=== PATIENT | male | born 1970 | race Caucasian/White ===

== ENCOUNTER 2024-08-24 02:06 | Day surgery (SDC) | payer OTHER, SELFPAY ==
--- NOTE | 2024-06-05 09:17 | SUR.PREOP ---
Patient called to reschedule his procedure since Dr. Perry will be unavailable on Jul 06. Message left on pt's voicemail.
--- NOTE | 2024-06-08 09:02 | SUR.PREOP ---
pt called to reschedule his procedure. Message left on pt's voicemail requesting a return call.
[2024-07-30 11:14] VITALS: BMI 26.0
[2024-08-24 08:43] VITALS: BP 125/72; PULSE 82; RESP 16; TEMP 36; O2SAT 100; BMI 25.8
[2024-08-24] MEDS: LACTATED RINGERS 1,000 ML 150 ML IV CONT (08:52)
--- NOTE | 2024-08-24 09:37 | P.PNAN_ITS ---
Anes - Initial Pre Proc Eval Procedure: Operation Date: 08/24/24 10:00 Proposed Procedures p Screening Colonoscopy - Ludwin Rios MD Date/Time: 08/24/24 09:37 Surgeon: Ludwin Rios MD Pre Op Diagnosis: Neoplasm screening Patient Data Age: 54 Gender: M Height: 1.75 m Weight: 79.4 kg Last Vital Signs Temp 96.8 F L 08/24/24 08:43 Pulse 82 08/24/24 08:43 Resp 16 08/24/24 08:43 BP 125/72 08/24/24 08:43 Pulse Ox 100 08/24/24 08:43 O2 Del Method Room Air 08/24/24 08:43 Allergies Allergy/AdvReac Type Severity Reaction Status Date / Time No Known Allergies Allergy Mild Verified 08/24/24 08:41 Home Medications Medication Instructions Recorded Confirmed Type loratadine 10 mg tablet (Claritin) 10 mg PO DAILY 07/30/24 08/24/24 History omeprazole 20 mg tablet,delayed 20 mg PO DAILY 07/30/24 08/24/24 History release Patient hx anesthesia problems: none Family hx anesthesia problems: none Results Review: All pre-operative results and documents have been reviewed as part of the pre- operative evaluation. [facility] Past Medical History Medical History (Updated 10/20/19 @ 08:29 by Guilherme Carmona MD) Hypothyroid Family History Family History Sibling Family history of gallbladder disease Mother Family history of malignant neoplasm Father Family history of diabetes mellitus in first degree relative Acute myocardial infarction Other Diabetes mellitus Social History Social History Smoking status: Never smoker Alcohol intake: current Living arrangements: with family Gender identity (if verbalized by the patient): Male Spiritual care concerns: No Anes - Eval Final PreProcedure Day of Procedure 08/24/24 09:37 Patient weight: normal Heart: regular rate and rhythm Lungs: clear to auscultation Airway: Mallampati scale class II Neurological: alert and oriented Last oral intake: >/= 8 hours ASA classification: II Emergent: no Anesthetic plan: proceed Anesthesia type and monitoring: general GIVS and standard monitoring Results Review: All pre-operative results and documents have been reviewed as part of the pre- operative evaluation. Informed Consent: The patient's anesthetic plan and its attendant risks and benefits were discussed with the patient/family/POA. Questions were solicited and answers provided to the satisfaction of the patient/family/POA.
--- NOTE | 2024-08-24 09:46 | PM.HPGS ---
History of Present Illness History of Present Illness Consent: Risks, benefits, and alternatives have been discussed and questions answered. Patient agrees to proceed with procedure. Chief complaint: Neoplasm screening Narrative: Freddy Gunn is a 54 year old male here for first screening colonoscopy Review of Systems Review of Systems: All systems reviewed & are unremarkable except as noted in HPI and below PMFSH Past Medical History Medical History (Updated 08/24/24 @ 09:47 by Ludwin Rios MD) Colon cancer screening Hypothyroid Family History Family History Sibling Family history of gallbladder disease Mother Family history of malignant neoplasm Father Family history of diabetes mellitus in first degree relative Acute myocardial infarction Other Diabetes mellitus Social History Social History Smoking status: Never smoker Alcohol intake: current Living arrangements: with family Gender identity (if verbalized by the patient): Male Spiritual care concerns: No Meds Home Medications and Allergies Home Medications Medication Instructions Recorded Confirmed Type loratadine 10 mg tablet (Claritin) 10 mg PO DAILY 07/30/24 08/24/24 History omeprazole 20 mg tablet,delayed 20 mg PO DAILY 07/30/24 08/24/24 History release Allergies Allergy/AdvReac Type Severity Reaction Status Date / Time No Known Allergies Allergy Mild Verified 08/24/24 08:41 Vital Signs Vital Signs - 24 hr 08/24/24 08:43 Temperature 96.8 F L Pulse Rate 82 Respiratory Rate 16 Blood Pressure 125/72 Pulse Oximetry 100 Oxygen Delivery Room Air Exam Const: General: comfortable and no acute distress HENMT: Face/Nose/Sinus: Normal nares present Eyes: General: appearance normal, both eyes and all related structures Neck: Neck: no JVD Resp: Auscultation: clear to auscultation bilaterally Cardio: Rate: regular rate Rhythm: regular rhythm GI: Inspection: non-distended GI Palp: Yes Soft to palpation Skin: General skin exam: normal color Neuro: General: gait normal Speech: normal speech Extrem: General: normal to inspection Psych: Mental Status: mental status grossly normal Assessment and Plan Assessment and plan (1) Colon cancer screening: Code(s): Z12.11 - Encounter for screening for malignant neoplasm of colon Status: Acute Assessment and Plan: colonoscopy
[2024-08-24 10:13] VITALS: BP 96/55; PULSE 49; RESP 20; O2SAT 98
[2024-08-24 10:23] VITALS: BP 100/58; PULSE 50; RESP 22; O2SAT 100
[2024-08-24 10:33] VITALS: BP 101/76; PULSE 50; RESP 21; O2SAT 100
== END 2024-08-24 10:42 | disposition home or self-care (01) ==
PROVIDERS: PCP Physician Assistant; Visit Provider Internal Medicine Gastroenterology
PROC: 0DJD8ZZ Inspection of Lower Intestinal Tract, Via Natural or Artificial Opening Endoscopic (ICD-10-PCS; CPT 45378; principal; 2024-08-24 10:00)
DX: Z12.11 Encounter for screening for malignant neoplasm of colon (principal); D12.0 Benign neoplasm of cecum; K63.5 Polyp of colon; K64.8 Other hemorrhoids; E03.9 Hypothyroidism, unspecified; Z80.9 Family history of malignant neoplasm, unspecified; Z82.49 Family history of ischemic heart disease and other diseases of the circulatory system
CPT/HCPCS: 45385; 88305; J2704; J7120

== ENCOUNTER 2024-12-28 18:15 | Emergency (ER) | payer OTHER, SELFPAY ==
--- OUTSIDE RECORDS SUMMARY | 2024-12-28 18:17 | XMS_ITS | Continuity of Care Document ---
Author Organization [facility] Address [address] [place] [address] Phone Care Team Providers Care Manager Of Data Name Role Phone Sander Fox MD Unavailable Unavailable Allergies, Adverse Reactions, Alerts Substance Reaction Status Criticality No Known Allergies Active No Inform ation Medications Medication Instructions Dosage Effective Dates (start - stop) Status Comments tramadol 50 mg tablet take 1 tablet by oral route every 6 hours as needed 50 MG - Active fluocinonide 0.05 % topical cream apply by topical route to affected area in Physical Therapy during Phonopheresis- dispense 60 gram tube - Active tramadol 50 mg tablet take 1 tablet by oral route every 6 hours as needed 50 MG - No Longer Active Procedures Procedure Date OFFICE/OUTPATIENT VISIT EST OFFICE/OUTPATIENT VISIT EST OFFICE/OUTPATIENT VISIT NEW Advance Directives Directive Yes / No Effective Date File Name No Information Encounters Encounter Description Practice Location Reason(s) For Visit Diagnoses Date Provider Providers Copied on Encounter [facility], [address], [address], [place] tel:[phone] [facility] No Information 9 Dominique Boucher. [address] [place], [place], [id number] . tel: [phone] OFFICE/OUTPA TIENT VISIT EST [facility], [address], [address], [place] tel:[phone] [facility] Impingement syndrome of right shoulderImpinge ment syndrome of left shoulder 9-201 9 Dominique Boucher. [address] [place], [place], [id number] . tel: [phone] OFFICE/OUTPA TIENT VISIT [facility], [address], [address], [phone] [facility] Impingement syndrome of right shoulder Jan-0 6-201 9 Dominique Boucher. [address] [place], [place], [id number] . tel: [phone] OFFICE/OUTPA TIENT VISIT [facility], [address] [place] [address], [address], [phone] [facility] Impingement syndrome of left shoulderImpinge ment syndrome of right shoulder 2 0-201 8 Dominique Boucher. [address] [place], [place], [id number] . tel: [phone] Family History Family Member Type Diagnosis Age At Onset Father Problem (finding) Mother Problem (finding) Brother Problem (finding) Alive and well Payers Payer name Insurance type Covered republican ID Aurelia molina(s) Ellie [employer] E2 OT [id number] Social History Type Description Quantity Date Captured Comments Sex Male Smoking Status No Information Chief Complaint And Reason For Visit No Information Reason For Referral Reason For Referral No Information Plan Of Treatment Date Type Action Status Referral Ordered: RADEX ZEUS COMPL MINIMUM 2 VIEWS Bilateral ordered History Of Present Illness Encounter Date Complaint History Of Prese nt Illness No Information Functional Status Date Functional Assessmen t No Information Instructions Date Instruction Additional Infor mation Immobilize as directed. Related to Impingement syndrome of left shoulder Home exercise program Related to Impingement syndrome of left shoulder Activity as tolerated Related to Impingement syndrome of left shoulder Assessments Type Assessment Date No Information Patient Care Teams Name Effective Dates (start - stop) Status Members No Information
[2024-12-28 18:59] VITALS: BP 129/67; PULSE 63; RESP 20; TEMP 36.6; O2SAT 99
--- NOTE | 2024-12-29 01:00 | PC.NURSE ---
Patient stated he was leaving due to wait times. Pt advised to be see at nearest ED if he deams it necessary. Pt in NAD.
--- OUTSIDE RECORDS SUMMARY | 2024-12-29 02:01 | XMS_ITS | Clinical Summary ---
Author Organization [facility] Address [address] [place] [address] Care Team Providers Care Assistant Wrestling Coach Name Role Phone No, Physician Primary Care Provider [phone] Tricia Han Unavailable Tonio Woo MD Unavailable [phone] Allergies No known active allergies Medications levothyroxine (SYNTHROID) 50 mcg tablet 0 Active omeprazole (PriLOSEC) 20 mg capsule 0 Active traMADoL (ULTRAM) 50 mg tablet Take 1-2 tablets every 4-6 hours as needed for pain. 30 tablet 0 Active Additional Information Patient not taking.Reported on 10/25/2020 traMADoL (ULTRAM) 50 mg tablet Take 1 tablets every 6 hours as needed for pain. 30 tablet 0 Active Additional Information Patient not taking.Reported on 11/22/2020 traMADoL (ULTRAM) 50 mg tablet Take 1 tablets every 6 hours as needed for pain. 30 tablet 0 Active Additional Information Patient not taking.Reported on 10/11/2020 traMADoL (ULTRAM) 50 mg tablet Take one tablet every six hours as needed for pain. 40 tablet 0 Active Additional Information Patient not taking.Reported on 10/11/2020 HYDROcodone-yan taminophen (NORCO) 5-325 mg per tabletIndicatio ns:Pain Take 1-2 tablets every 4 hours as needed for pain 40 tablet 0 Active Additional Information Patient not taking.Reported on 01/10/2021 celecoxib (CeleBREX) 100 mg capsuleIndicati ons:Traumatic complete tear of left rotator cuff, subsequent encounter Take 1 capsule (100 mg total) by mouth 2 (two) times a day 60 capsule 0 Active Active Problems No known active problems Family History Medical History Relation Name Comments Diabetes Father Heart disease Father Stroke Father Cancer Mother Relation Name Status Comments Father Mother Social History Tobacco Use Types Packs/Day Years Used Date Smoking Tobacco: Former Smokeless Tobacco: Never Personal Safety Answer Date Recorded Getting School Help Needed Not on file 02/15 Sex and Gender Information Value Date Recorded Sex Assigned at Not on file Legal Sex Male 11:03 AM CDT Gender Identity Not on file Sexual Orientation Not on file Obstetrics History Last Filed Vital Signs Vital Sign Reading Time Taken Comments Blood Pressure - - Pulse - - Temperature 36.7 ??C (98 ??F) 02/07/2021 3:12 PM SUPERVISOR REFINING Respiratory Rate - - Oxygen Saturation - - Inhaled Oxygen Concentration - - Weight 81.6 kg (180 lb) 02/07/2021 3:12 PM SUPERVISOR REFINING Height 171.5 cm (5' 7.5 ) 02/07/2021 3:12 PM SUPERVISOR REFINING Body Mass Index 27.78 02/07/2021 3:12 PM SUPERVISOR REFINING Plan of Treatment Not on file Insurance [employer] OPEN ACCESS Care Teams Assistant Wrestling Coach Relationship Specialty Start Date End Date No, Physician PCP - General 09/21/20 Tricia Han PA Physician Remote Sensing Scientist 09/21/20 Tonio Woo MD [address] [address] Surgeon Orthopedic Surgery 07/19/20
--- OUTSIDE RECORDS SUMMARY | 2024-12-29 02:01 | XMS_ITS | Referral Summary ---
Author Organization [facility] Address [address] [place] [address] Care Team Providers Care Bottom Polisher Name Role Phone No, Physician Primary Care Provider [phone] Tricia Han Unavailable Tonio Woo MD Unavailable [phone] Allergies No known active allergies Medications [...] Active Active Problems No known active problems Social History Tobacco Use Types Packs/Day Years Used Date Smoking Tobacco: Former Smokeless Tobacco: Never Personal Safety Answer Date Recorded Getting School Help Needed Not on file 02/15 Sex and Gender Information Value Date Recorded Sex Assigned at Not on file Legal Sex Male 11:03 AM CDT Gender Identity Not on file Sexual Orientation Not on file Last Filed Vital Signs Vital Sign Reading Time Taken Comments Blood Pressure - - Pulse - - Temperature 36.7 ??C (98 ??F) 02/07/2021 3:12 PM BISCUITWARE BRUSHER Respiratory Rate - - Oxygen Saturation - - Inhaled Oxygen Concentration - - Weight 81.6 kg (180 lb) 02/07/2021 3:12 PM BISCUITWARE BRUSHER Height 171.5 cm (5' 7.5 ) 02/07/2021 3:12 PM BISCUITWARE BRUSHER Body Mass Index 27.78 02/07/2021 3:12 PM BISCUITWARE BRUSHER Plan of Treatment Not on file Insurance [employer] OPEN ACCESS [address] [id number] Care Teams Bottom Polisher Relationship Specialty Start Date End Date No, Physician PCP - General 09/21/20 Tricia Han PA Physician Flag Signaler 09/21/20 Tonio Woo MD [address] [address] Surgeon Orthopedic Surgery 07/19/20
--- OUTSIDE RECORDS SUMMARY | 2024-12-29 02:01 | XMS_ITS | Continuity of Care Document ---
Author Organization [facility] Address [address] [place] [address] Phone Care Team Providers Care Band Builder Name Role Phone Sander Fox MD Unavailable [...] Diagnoses Date Provider Providers Copied on Encounter [facility], [address], [address], [place] tel:[phone] [facility] No Information 9 Dominique Boucher. [address] [place], [place], [id number] . tel: [phone] OFFICE/OUTPA TIENT VISIT EST [facility], [address], [address], [place] tel:[phone] [facility] Impingement syndrome of right shoulderImpinge ment syndrome of left shoulder 9-201 9 Dominique Boucher. [address] [place], [place], [id number] . tel: [phone] OFFICE/OUTPA TIENT VISIT [facility], [address], [address], [phone] [facility] Impingement syndrome of right shoulder Jan-0 6-201 9 Dominique Boucher. [address] [place], [place], [id number] . tel: [phone] OFFICE/OUTPA TIENT VISIT [facility], [address] [place] [address], [address], [phone] [facility] Impingement syndrome of left shoulderImpinge ment syndrome of right shoulder 2 0-201 8 Dominique Boucher. [address] [place], [place], [id number] . tel: [phone] Family History Family Member Type Diagnosis Age At Onset Father Problem (finding) Mother Problem (finding) Brother Problem (finding) Alive and well Payers Payer name Insurance type Covered libertarian ID Aurelia molina(s) Ellie [employer] Access [employer] E2 OT [id number] Social History Type Description Quantity Date Captured [...]
== END 2024-12-29 01:00 | disposition left against medical advice (07) ==
PROVIDERS: PCP Physician Assistant
DX: L02.426 Furuncle of left lower limb (principal)
CPT/HCPCS: 99199